=== PATIENT | female | born 1985 | race Hispanic/Latino ===

== ENCOUNTER 2018-01-22 18:24 | Emergency (ER) | payer OTHER ==
[~2018-01-22] VITALS: Ht 170.2 cm; Wt 112.8 kg
[~2018-01-22 18:24] MED LIST: ACCU-CHEK SOFTCLIX XX; AMOXICILLIN500 MG OR; CIPRO500 MG OR; CIPROFLOXACN500 MG PO; CRESTOR5 MG PO; DENIES CURRENT MEDS; FISH OIL1000 MG PO; GLUCOPHAGE500 MG PO; LEVOTHYROXINE25 MCG PO; LISINOPRIL5 MG PO; LORTAB 5 OR; LORTAB5 PO; LOVASTATIN10 M1 PO; LOVASTATIN20 M1 PO; MOTRIN800 MG PO; NO HOME MEDS; NO MEDS; PERCOCET 5/325M1 TAB OR; PROMETHAZINE25 MG OR; PYRIDIUM200 MG PO; ROBITUSSIN AC10 ML OR; ULTRAM50 M1 PO; VANTIN100 MG PO; VANTIN200 M1 PO; [UNRECOGNIZED DRUG - SUPPLY] XX
[2018-01-22 19:30] LABS: INFLUENZA A POSITIVE (NONE DETECT); INFLUENZA B NONE DETECTED (NONE DETECT)
[2018-01-22] MEDS ORDERED: CODEINE/GUAIFEN1 SOL PO (20:57)
[2018-01-22] MEDS ORDERED: TAM75CAP PO (20:57)
[2018-01-22 21:15] VITALS: BP 124/84
== END 2018-01-22 21:15 | disposition home or self-care (01) | DRG 195 ==
LOC: ED 18:24
PROVIDERS: Emergency Medicine
DX: J10.1 Influenza due to other identified influenza virus with other respiratory manifestations (principal); R05 Cough; R50.9 Fever, unspecified; R11.2 Nausea with vomiting, unspecified; R09.81 Nasal congestion; R09.89 Other specified symptoms and signs involving the circulatory and respiratory systems

== ENCOUNTER 2018-05-13 10:01 | Emergency (ER) | payer SELFPAY ==
[~2018-05-13] VITALS: Ht 170.2 cm; Wt 91.0 kg
[~2018-05-13 10:01] MED LIST changes: +CODEINE/GUAIFEN1 SOL PO; +TAM75CAP PO
[2018-05-13 11:40] LABS: IMMATURE GRANULOCYTES 0.4 % (0.0-1.0); MEAN CELL VOLUME 88.6 fL CALC (80.0-100.0); MEAN CORPUSCULAR HGB CONC 32.7 g/L CALC (32.0-36.0); NEUT# 6.08 thou/uL (2.00-7.15); RED BLOOD COUNT 4.28 mill/uL (4.20-5.60); RED CELL DISTRI WIDTH 14.9 % (11.5-15.5)
[2018-05-13 11:42] LABS: HEMATOCRIT 37.9 % (37.0-47.0); HEMOGLOBIN 12.4 g/dl (12.0-16.0)
[2018-05-13 12:08] LABS: ALBUMIN 3.9 g/dL (3.2-5.0); ALKALINE PHOSPHATASE 128 u/l (38-126); BILIRUBIN, TOTAL 0.5 mg/dL (0.0-1.4); BUN 8 mg/dL (7-17); BUN/CREATININE RATIO 20 (12-20 (CALC)); CARBON DIOXIDE 23 mmol/l (22-30); CHLORIDE 101 mmol/l (95-108); CREATININE 0.4 mg/dL (0.5-1.0); GFR > 60 ML/MIN (>=60 (CALC)); GFR FOR AFR.AMER. > 60 ML/MIN (>=60 (CALC)); POTASSIUM 4.3 mmol/l (3.5-5.1); SGOT/AST 63 u/l (14-36); SGPT/ALT 68 u/l (9-52); TOTAL PROTEIN 7.7 g/dL (6.3-8.2)
[2018-05-13 12:19] LABS: ANION GAP 13 (6-22 (CALC)); SODIUM 133 mmol/l (137-146)
[2018-05-13 12:51] VITALS: BP 110/68
== END 2018-05-13 12:55 | disposition home or self-care (01) | DRG 93 ==
LOC: ED 10:01
PROVIDERS: Emergency Medicine
DX: R20.2 Paresthesia of skin (principal); Z32.01 Encounter for pregnancy test, result positive

== ENCOUNTER 2018-06-17 08:54 | Emergency (ER) | payer OTHER ==
[~2018-06-17] VITALS: Ht 170.2 cm; Wt 100.0 kg
[2018-06-17 10:16] LABS: URINE BILIRUBIN - DIPSTICK NEGATIVE (NEGATIVE); URINE BLOOD DIPSTICK LARGE (NEGATIVE); URINE COLOR YELLOW; URINE GLUCOSE - DIPSTICK NEGATIVE (NEGATIVE); URINE KETONE NEGATIVE (NEGATIVE); URINE NITRITE - DIPSTICK NEGATIVE (Negative); URINE PROTEIN - DIPSTICK NEGATIVE (NEG-TRACE); URINE UROBILINOGEN - DIPSTICK 0.2 E.U./dL (0.2)
[2018-06-17 10:20] LABS: URINE LEUK ESTERASE SMALL (NEGATIVE)
[2018-06-17 10:21] LABS: URINE BACTERIA FEW hpf; URINE CLARITY CLOUDY; URINE EPITHELIAL CELLS FEW EPI/hpf (0-FEW); URINE RBC 50-100 RBC/hpf (0-5)
[2018-06-17] MEDS ORDERED: MACROBID100 MG PO (11:29)
[2018-06-17 11:39] VITALS: BP 119/62
== END 2018-06-17 11:39 | disposition home or self-care (01) ==
LOC: ED 08:54
PROVIDERS: Emergency Medicine
DX: O20.0 Threatened abortion (principal); O23.40 Unspecified infection of urinary tract in pregnancy, unspecified trimester; O99.330 Smoking (tobacco) complicating pregnancy, unspecified trimester; O24.919 Unspecified diabetes mellitus in pregnancy, unspecified trimester; O16.9 Unspecified maternal hypertension, unspecified trimester; O26.839 Pregnancy related renal disease, unspecified trimester; F17.210 Nicotine dependence, cigarettes, uncomplicated; B96.20 Unspecified Escherichia coli [E. coli] as the cause of diseases classified elsewhere; Z3A.00 Weeks of gestation of pregnancy not specified

== ENCOUNTER 2018-06-19 14:42 | Emergency (ER) | payer OTHER ==
[~2018-06-19] VITALS: Ht 170.2 cm; Wt 111.8 kg
[~2018-06-19 14:42] MED LIST changes: +MACROBID100 MG PO
[2018-06-19 15:18] LABS: HEMATOCRIT 40.2 % (37.0-47.0); HEMOGLOBIN 13.3 g/dl (12.0-16.0); IMMATURE GRANULOCYTES 0.3 % (0.0-5.0); MEAN CELL VOLUME 87.2 fL CALC (80.0-100.0); MEAN CORPUSCULAR HGB 28.9 pG CALC (26.0-32.0); MEAN CORPUSCULAR HGB CONC 33.1 g/L CALC (32.0-36.0); NEUT# 6.28 thou/uL (2.00-7.15); RED BLOOD COUNT 4.61 mill/uL (4.20-5.60); RED CELL DISTRI WIDTH 14.5 % (11.5-15.5)
[2018-06-19] MEDS ORDERED: TORADOL PO (15:55)
[2018-06-19 16:09] VITALS: BP 109/58
== END 2018-06-19 16:32 | disposition home or self-care (01) ==
LOC: ED 14:42
PROVIDERS: Emergency Medicine
DX: O20.0 Threatened abortion (principal); Z3A.01 Less than 8 weeks gestation of pregnancy; F17.210 Nicotine dependence, cigarettes, uncomplicated

== ENCOUNTER 2018-08-11 21:53 | Emergency (ER) | payer OTHER ==
[~2018-08-11] VITALS: Ht 170.2 cm; Wt 113.8 kg
[~2018-08-11 21:53] MED LIST changes: +TORADOL PO
[2018-08-11] MEDS ORDERED: BACTRIM DS1 TAB PO (22:43)
[2018-08-11] MEDS ORDERED: CEPHALEXIN500 M1 PO (22:43)
[2018-08-12 01:14] VITALS: BP 127/81
== END 2018-08-12 00:31 | disposition home or self-care (01) ==
LOC: ED 21:53
DX: O86.0 Infection of obstetric surgical wound (principal); O24.93 Unspecified diabetes mellitus in the puerperium; O16.5 Unspecified maternal hypertension, complicating the puerperium

== ENCOUNTER 2019-05-07 15:52 | Emergency (ER) | payer SELFPAY ==
[~2019-05-07] VITALS: Ht 170.2 cm; Wt 113.0 kg
[~2019-05-07 15:52] MED LIST changes: +BACTRIM DS1 TAB PO; +CEPHALEXIN500 M1 PO
[2019-05-07 16:39] LABS: HEMOGLOBIN 12.4 g/dl (12.0-16.0); IMMATURE GRANULOCYTES 0.5 % (0.0-5.0); MEAN CELL VOLUME 90.7 fL CALC (80.0-100.0); MEAN CORPUSCULAR HGB 28.8 pG CALC (26.0-32.0); MEAN CORPUSCULAR HGB CONC 31.8 g/L CALC (32.0-36.0); NEUT# 5.77 thou/uL (2.00-7.15); RED BLOOD COUNT 4.3 mill/uL (4.20-5.60); RED CELL DISTRI WIDTH 14.7 % (11.5-15.5)
[2019-05-07 16:40] LABS: URINE BILIRUBIN - DIPSTICK NEGATIVE (NEGATIVE); URINE BLOOD DIPSTICK NEGATIVE (NEGATIVE); URINE COLOR YELLOW; URINE GLUCOSE - DIPSTICK 100 mg/dL (NEGATIVE); URINE KETONE NEGATIVE (NEGATIVE); URINE LEUK ESTERASE NEGATIVE (NEGATIVE); URINE NITRITE - DIPSTICK NEGATIVE (Negative); URINE PROTEIN - DIPSTICK NEGATIVE (NEG-TRACE); URINE SPECIFIC GRAVITY 1.025
[2019-05-07 16:51] LABS: ALBUMIN 4.3 g/dL (3.2-5.0); ALKALINE PHOSPHATASE 155 u/l (38-126); BILIRUBIN, TOTAL 0.4 mg/dL (0.0-1.4); BUN 8 mg/dL (7-17); BUN/CREATININE RATIO 22 (12-20 (CALC)); CARBON DIOXIDE 23 mmol/l (22-30); CHLORIDE 105 mmol/l (95-108); CREATININE 0.4 mg/dL (0.5-1.0); GFR > 60 ML/MIN (>=60 (CALC)); GFR FOR AFR.AMER. > 60 ML/MIN (>=60 (CALC)); LIPASE 32 u/l (23-300); POTASSIUM 3.7 mmol/l (3.5-5.1); TOTAL PROTEIN 8.3 g/dL (6.3-8.2)
[2019-05-07 16:54] LABS: ANION GAP 16 (6-22 (CALC)); SGOT/AST 142 u/l (14-36); SODIUM 140 mmol/l (137-146)
[2019-05-07] MEDS ORDERED: PROTONIX40 M2 PO (17:41)
[2019-05-07] MEDS ORDERED: ZOFRAN4 M1 PO (17:41)
[2019-05-07] MEDS ORDERED: METFORMIN500 M1 PO (17:48)
[2019-05-07 18:06] VITALS: BP 134/82
== END 2019-05-07 18:06 | disposition home or self-care (01) | DRG 392 ==
LOC: ED 15:52
PROVIDERS: Emergency Medicine
DX: R11.10 Vomiting, unspecified (principal); R19.7 Diarrhea, unspecified; R74.8 Abnormal levels of other serum enzymes; E11.9 Type 2 diabetes mellitus without complications; I10 Essential (primary) hypertension; F17.200 Nicotine dependence, unspecified, uncomplicated; T38.3X6A Underdosing of insulin and oral hypoglycemic [antidiabetic] drugs, initial encounter; Z91.128 Patient's intentional underdosing of medication regimen for other reason

== ENCOUNTER 2019-06-26 14:01 | Emergency (ER) | payer MEDICAID ==
[~2019-06-26] VITALS: Ht 170.2 cm; Wt 113.6 kg
[~2019-06-26 14:01] MED LIST changes: +METFORMIN500 M1 PO; +PROTONIX40 M2 PO; +ZOFRAN4 M1 PO
[2019-06-26 15:41] VITALS: BP 145/92
== END 2019-06-26 15:41 | disposition home or self-care (01) ==
LOC: ED 14:01
DX: S60.212A Contusion of left wrist, initial encounter (principal); E11.9 Type 2 diabetes mellitus without complications; I10 Essential (primary) hypertension; F17.210 Nicotine dependence, cigarettes, uncomplicated; W22.8XXA Striking against or struck by other objects, initial encounter; Y92.009 Unspecified place in unspecified non-institutional (private) residence as the place of occurrence of the external cause; Z79.84 Long term (current) use of oral hypoglycemic drugs

== ENCOUNTER 2020-01-23 | Emergency (ER) | payer SELFPAY ==
[2020-01-23] MEDS ORDERED: CLEOCIN300 MG PO (16:15)
[2020-01-23] MEDS ORDERED: HYDROCO/APAP1 TA9 PO (16:15)
== END 2020-01-23 16:55 | disposition home or self-care (01) | DRG 159 ==
DX: K08.89 Other specified disorders of teeth and supporting structures (principal); E11.9 Type 2 diabetes mellitus without complications; I10 Essential (primary) hypertension; F17.210 Nicotine dependence, cigarettes, uncomplicated

== ENCOUNTER 2020-10-25 06:12 | Emergency (ER) | payer SELFPAY ==
[~2020-10-25] VITALS: Ht 170.2 cm; Wt 110.0 kg
[~2020-10-25 06:12] MED LIST changes: +CLEOCIN300 MG PO; +HYDROCO/APAP1 TA9 PO
[2020-10-25 06:35] VITALS: BP 137/90
== END 2020-10-25 06:35 | disposition home or self-care (01) | DRG 156 ==
LOC: ED 06:12
DX: H92.01 Otalgia, right ear (principal); I10 Essential (primary) hypertension; E11.42 Type 2 diabetes mellitus with diabetic polyneuropathy; F17.200 Nicotine dependence, unspecified, uncomplicated

== ENCOUNTER 2021-03-05 14:04 | Emergency (ER) | payer SELFPAY ==
[2021-03-05 14:46] VITALS: BP 150/78
== END 2021-03-05 14:46 | disposition home or self-care (01) | DRG 918 ==
LOC: ED 14:04
DX: T63.301A Toxic effect of unspecified spider venom, accidental (unintentional), initial encounter (principal); E11.9 Type 2 diabetes mellitus without complications; I10 Essential (primary) hypertension; F17.200 Nicotine dependence, unspecified, uncomplicated

== ENCOUNTER 2023-07-03 10:39 | Emergency (ER) | payer SELFPAY ==
[~2023-07-03] VITALS: Ht 170.2 cm; Wt 111.1 kg
[2023-07-03] VITALS (13 sets, daily range): BP systolic 109–172; BP diastolic 60–83
[2023-07-03 11:59] LABS: URINE BILIRUBIN - DIPSTICK NEGATIVE (NEGATIVE); URINE COLOR DK. YELLOW; URINE GLUCOSE - DIPSTICK 100 mg/dL (NEGATIVE); URINE KETONE TRACE mg/dL (NEGATIVE); URINE PROTEIN - DIPSTICK >=300 mg/dL (NEG-TRACE); URINE SPECIFIC GRAVITY >=1.030; URINE UROBILINOGEN - DIPSTICK 0.2 E.U./dL (0.2)
[2023-07-03 12:00] LABS: URINE BLOOD DIPSTICK MODERATE (NEGATIVE); URINE LEUK ESTERASE TRACE (NEGATIVE); URINE NITRITE - DIPSTICK POSITIVE (Negative); URINE RBC 25-50 RBC/hpf (0-5)
[2023-07-03 12:01] LABS: URINE BACTERIA MANY hpf; URINE EPITHELIAL CELLS MANY EPI/hpf (0-FEW); URINE MUCUS MODERATE hpf (NONE-FEW)
[2023-07-03 12:28] LABS: BASO% 0.7 % (0-3); EOS% 3.6 % (0-8); HEMATOCRIT 40.5 % (37.0-47.0); HEMOGLOBIN 13.1 g/dl (12.0-16.0); IMMATURE GRANULOCYTES 0.2 % (0.0-5.0); LYMPH% 42.5 % (15-41); MEAN CELL VOLUME 89.4 fL CALC (80.0-100.0); MEAN CORPUSCULAR HGB 28.9 pG CALC (26.0-32.0); MEAN CORPUSCULAR HGB CONC 32.3 g/dL CAL (32.0-36.0); MONO% 3.8 % (2-13); NEUT# 6.7 thou/uL (2.00-7.15); NEUT% 49.2 % (42-76); RED BLOOD COUNT 4.53 mill/uL (4.20-5.60); RED CELL DISTRI WIDTH 13.5 % (11.5-15.5)
[2023-07-03 12:45] LABS: ALBUMIN 4.3 g/dL (3.2-5.0); ALKALINE PHOSPHATASE 141 u/l (38-126); ANION GAP 13 (6-22 (CALC)); BILIRUBIN, TOTAL 0.5 mg/dL (0.02-1.3); BUN 9 mg/dL (7-17); BUN/CREATININE RATIO 25 (12-20 (CALC)); CARBON DIOXIDE 24 mmol/l (22-30); CHLORIDE 103 mmol/l (95-108); CREATININE 0.3 mg/dL (0.5-1.0); GFR FOR AFR.AMER. > 60 ML/MIN (>=60 (CALC)); GFR OTHER RACES > 60 ML/MIN (>=60 (CALC)); POTASSIUM 4.4 mmol/l (3.5-5.1); SGOT/AST 71 u/l (14-36); SODIUM 136 mmol/l (137-146)
[2023-07-03] MEDS ORDERED: KEFLEX500 MG PO (14:00)
[2023-07-03] MEDS ORDERED: PHENAZOPYRIDIN100 M1 PO (14:15)
== END 2023-07-03 14:23 | disposition home or self-care (01) | DRG 690 ==
LOC: ED 10:39
PROVIDERS: Family Medicine; Nurse Practitioner
DX: N39.0 Urinary tract infection, site not specified (principal); I10 Essential (primary) hypertension; E11.9 Type 2 diabetes mellitus without complications; F17.200 Nicotine dependence, unspecified, uncomplicated; Z87.440 Personal history of urinary (tract) infections